=== PATIENT | female | born 1995 | race Caucasian/White ===

== ENCOUNTER 2020-12-11 18:19 | Emergency (ER) | payer OTHER, SELFPAY ==
--- NOTE | ~2020-12-11 | XR_ITS ---
EXAMINATION: XR chest 2V DATE: 12/11/2020 20:03 INDICATION: Shortness of breath TECHNIQUE: PA and lateral views of the chest are obtained. COMPARISON: 12/20/2015 FINDINGS: The lungs are free of acute opacities. There is no pleural effusion or pneumothorax. The ca rdiomediastinal silhouette is normal. The visualized bones and soft tissues are unremarkable. IMPRESSION: 1. No acute cardiopulmonary abnormality. Reviewed, dictated and finalized at location A.
[2020-12-11 18:38] VITALS: BP 131/72; PULSE 99; RESP 16; TEMP 36.6; O2SAT 100
--- NOTE | 2020-12-11 18:45 | ECG_ITS ---
Measurements Intervals [place] Rate: 92 P: 63 WV: 154 QRS: 40 QRSD: 86 T: 21 QT: 330 QTc: 409 Interpretive Statements SINUS RHYTHM MINIMAL Q WAVES- INFERIOR LEADS BORDERLINE ECG Electronically Signed On 12-11-2020 19:04:03 CDT by Hugh Figueroa D.O.
[2020-12-11 20:22] LABS: Basophils Absolute Auto 0.1 K/mm3 (0.0-0.1); Basophils Percent Auto 0.5 % (0.2-1.2); Eosinophils Absolute Auto 0.2 K/mm3 (0-0.3); Eosinophils Percent Auto 1.8 % (0-4.4); Hematocrit 39.9 % (37.0-47.0); Hemoglobin 12.7 g/dL (12.0-15.0); Immature Granulocyte Absolute 0.02 K/mm3 (0.00-0.031); Immature Granulocyte Percent A 0.2 % (0-0.5); Lymphocytes Absolute Auto 4.37 K/mm3 (0.9-3.2); Lymphocytes Percent Auto 36.2 % (18.3-44.2); Mean Corpuscular HGB Conc 31.8 g/dl (32-36); Mean Corpuscular Hemoglobin 28.5 pg (26-34); Mean Corpuscular Volume 89.7 fl (80-100); Monocytes Absolute Auto 0.7 K/mm3 (0.1-0.6); Monocytes Percent Auto 5.7 % (2.6-8.5); Neutrophils Absolute Auto 6.7 K/mm3 (1.3-6.7); Neutrophils Percent Auto 55.6 % (45.5-73.1); Platelet Count Result 337 k/mm3 (150-375); Red Blood Count 4.45 M/mm3 (4.2-5.4); Red Cell Distribution Width 12.9 % (11.5-14.5); White Blood Count 12.1 K/mm3 (4.5-10.0)
[2020-12-11 20:27] LABS: Add Urine Microscopic? YES; Amorphous Sediment Urine Moderate; Appearance Urine Cloudy (Clear); Bacteria Urine Trace /hpf; Bilirubin Urine Negative (Negative); Blood Urine Negative (Negative); Color Urine Yellow (Yellow); Glucose Urine UA Negative (Negative); Ketones Urine Negative (Negative); Leukocyte Esterase Ur Negative LEU/UL (Negative); Mucus Urine Rare /lpf; Nitrate Urine Negative (Negative); Protein Urine Negative (Negative); Squamous Epithelial Cell Urine Moderate /hpf (Few); Urobilinogen Urine Negative mg/dL (<2.0); WBC Urine 0-3 /hpf
[2020-12-11 20:35] LABS: Alanine Aminotransferase 15 U/L (4-35); Albumin Level 4.3 g/dL (3.5-5.1); Alkaline Phosphatase 77 U/L (38-126); Anion Gap 3 mmol/L (8-16); Aspartate Amino Transferase 22 U/L (14-36); Bilirubin,Total 0.1 mg/dL (0.2-1.3); Blood Urea Nitrogen 14 mg/dL (7-17); Calcium 9.1 mg/dL (8.4-10.2); Carbon Dioxide 33 mmol/L (22-30); Chloride 103 mmol/L (98-107); Estimated CRCL calculation 129 ml/min; Estimated Glomerular Filt Rate > 60; Glucose 74 mg/dL (65-105); Sodium 139 mmol/L (137-145)
[2020-12-11 22:09] VITALS: BP 129/69; PULSE 89; RESP 15; O2SAT 100
--- NOTE | 2020-12-11 22:15 | ED.BACK ---
HPI - Back Pain/Injury General Chief Complaint: Back Pain/Injury Stated Complaint: upper back pain Time Seen by Provider: 12/11/20 18:54 Source: patient Mode of arrival: ambulatory Limitations: no limitations History of Present Illness HPI Narrative: Patient is a 25-year-old female who presents complaining of right x4 days. She denies known injury. She reports increased pain with deep breathing, and difficulty deep breathing. She reports taking muscle relaxants and ibuprofen with moderate relief. She reports pain has been increasing over the past few days. She denies significant medical history. MD elicited complaint: back pain Related Data Home Medications Medication Instructions Recorded Confirmed bupropion HCl [Wellbutrin XL] 300 mg PO QAM 12/11/20 Allergies Allergy/AdvReac Type Severity Reaction Status Date / Time No Known Allergies Allergy Verified 12/11/20 18:42 Review of Systems Review of Systems: Narrative: CONSTITUTIONAL: Denies fever, chills, or sweats. EYES: Denies visual changes, redness, or discharge. ENT: Denies rhinorrhea, congestion, sore throat, or otalgia. CARDIOVASCULAR: Denies chest pain, palpitations, or edema. RESPIRATORY: Denies cough or dyspnea. GASTROINTESTINAL: Denies abdominal pain, nausea, vomiting, or diarrhea. GENITOURINARY: Denies dysuria or hematuria. SKIN: Denies rash or itching. MUSCULOSKELETAL: Upper back pain NEUROLOGIC: Denies headache, numbness, dizziness, or weakness. PSYCHIATRIC: Denies anxiety or depression. [facility] Past Medical History Medical History No significant past medical history Surgical History Surgical History No significant past surgical history Family History Family History (Updated 12/11/20 @ 22:24 by RICO Costa) Other No significant family history Social History Social History (Updated 12/11/20 @ 22:25 by RICO Costa) Smoking status: Never smoker Alcohol intake: never Substance use: never Comments At the time of signature, I have reviewed and agree with nursing past medical, surgical, social, and family history unless otherwise noted. Please see nursing chart for further information. There is no relevant family history pertinent to the presenting complaint. Exam Narrative: Exam Narrative: GENERAL: Well-appearing, well-nourished, and in no acute distress. HEAD: Normocephalic, atraumatic. EYES: EOMI. No redness or drainage. Conjunctiva are normal. ENT: Mucous membranes pink and moist. NECK: AROM. CHEST: No respiratory distress. Clear to auscultation. HEART: Regular rate and rhythm. MUSCULOSKELETAL: No bony tenderness. EXTREMITIES: Normal range of motion. No edema. SKIN: Warm, dry, no rash. NEURO: No focal deficits. Alert and oriented x3. Gait steady. PSYCH: Normal affect. No signs of depression or anxiety. Course Vital Signs Vital signs: Vital Signs Temperature 36.6 C 12/11/20 18:38 Pulse Rate 99 12/11/20 18:38 Respiratory Rate 16 12/11/20 18:38 Blood Pressure 131/72 12/11/20 18:38 Pulse Oximetry 100 12/11/20 18:38 Temperature 36.6 C 12/11/20 18:38 Pulse Rate 89 12/11/20 22:09 Respiratory Rate 15 12/11/20 22:09 Blood Pressure 129/69 12/11/20 22:09 Pulse Oximetry 100 12/11/20 22:09 Reviewed-patient is informed that they may have pre-hypertension or hypertension based on a blood pressure reading. I recommend the patient call the primary care provider listed on their discharge instructions or a physician of their choice this week to arrange follow-up for further evaluation of possible pre-hypertension or hypertension. MDM - Back Pain/Injury MDM Narrative Medical decision making narrative: Patient most likely has musculoskeletal pain to upper thoracic back. Discussed using ice, heat, Tylenol and ibuprofen as well as muscle relaxant. Patient encourage
== END 2020-12-11 22:28 | disposition home or self-care (01) ==
PROVIDERS: Emergency Provider Nurse Practitioner
DX: M54.6 Pain in thoracic spine (principal)
CPT/HCPCS: 36415; 71046; 80053; 81001; 81025; 85025; 93005; 99283

== ENCOUNTER 2022-03-19 10:32 | Outpatient (CLI) | payer OTHER, SELFPAY ==
--- NOTE | ~2022-03-19 | XR_ITS ---
EXAMINATION: XR ankle LT min 3V DATE: 03/19/2022 10:52 INDICATION: Left ankle swelling and bruising post fall TECHNIQUE: Anteroposterior, oblique, mortise, and lateral views of the left ankle were obtained. COMPARISON: None. FINDINGS: Alignment is normal. No fracture. Joint spaces are well maintained. No ankle joint effusion. The so ft tissues are unremarkable. IMPRESSION: 1. Negative left ankle radiographs. Reviewed, dictated and finalized at location B.
--- NOTE | ~2022-03-19 | XR_ITS ---
EXAMINATION: XR knee LT min 4V DATE: 03/19/2022 10:52 INDICATION: Left knee swelling and bruising post fall TECHNIQUE: Anteroposterior, 2 oblique and crosstable lateral views of the left knee were obtained COMPARISON: None. FINDINGS: Alignment is normal. No fracture. No joint effusion/layering lipohemarthrosis. Soft tissues are unre markable. IMPRESSION: 1. Negative left knee radiographs. Reviewed, dictated and finalized at location B.
== END 2022-03-19 10:33 | disposition home or self-care (01) ==
LOC: ANHIMG 10:33
PROVIDERS: Visit Provider Obstetrics & Gynecology
DX: M79.89 Other specified soft tissue disorders (principal); T14.8XXA Other injury of unspecified body region, initial encounter
CPT/HCPCS: 73564; 73610

== ENCOUNTER 2022-03-20 12:49 | Emergency (ER) | payer OTHER, SELFPAY ==
--- NOTE | ~2022-03-20 | US_ITS ---
US venous doppler [facility] DATE: 03/20/2022 14:18 INDICATION: Left leg pain and bruising TECHNIQUE: Real-time and color flow imaging and Doppler analysis COMPARISON: None FINDINGS: There is spontaneous and phasic flow and normal augmentation and color flow signal and norm al compression of the deep veins of the left lower extremity. There is no evidence of deep venous thr ombosis. No popliteal cyst demonstrated. Probable left lateral lower leg hematoma. IMPRESSION: No evidence of deep venous thrombosis of left leg Reviewed, dictated and finalized at Location A. Reviewed, dictated and finalized at location A.
[2022-03-20 13:11] VITALS: BP 155/97; PULSE 105; RESP 16; TEMP 36.3; O2SAT 100
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
[2022-03-20 14:25] LABS: Basophils Absolute Auto 0.1 K/mm3 (0.0-0.1); Basophils Percent Auto 0.5 % (0.2-1.2); Eosinophils Absolute Auto 0.1 K/mm3 (0-0.3); Eosinophils Percent Auto 0.6 % (0-4.4); Hematocrit 42.8 % (37.0-47.0); Hemoglobin 13.5 g/dL (12.0-15.0); Immature Granulocyte Absolute 0.05 K/mm3 (0.00-0.031); Immature Granulocyte Percent A 0.4 % (0-0.5); Lymphocytes Absolute Auto 2.63 K/mm3 (0.9-3.2); Mean Corpuscular HGB Conc 31.5 g/dl (32-36); Mean Corpuscular Volume 91.8 fl (80-100); Mean Platelet Volume 11.1 fl (7.4-10.4); Monocytes Absolute Auto 0.9 K/mm3 (0.1-0.6); Monocytes Percent Auto 6.8 % (2.6-8.5); Neutrophils Absolute Auto 8.9 K/mm3 (1.3-6.7); Neutrophils Percent Auto 70.7 % (45.5-73.1); Platelet Count Result 355 k/mm3 (150-375); Red Blood Count 4.66 M/mm3 (4.2-5.4); Red Cell Distribution Width 13.9 % (11.5-14.5); White Blood Count 12.6 K/mm3 (4.5-10.0)
[2022-03-20 14:42] LABS: Anion Gap 6 mmol/L (8-16); Blood Urea Nitrogen 11 mg/dL (7-17); Carbon Dioxide 29 mmol/L (22-30); Chloride 102 mmol/L (98-107); Estimated CRCL calculation 114 ml/min; Estimated Glomerular Filt Rate > 60; Glucose 101 mg/dL (65-110); Potassium 3.9 mmol/L (3.4-5.0); Sodium 137 mmol/L (137-145)
[2022-03-20 15:15] VITALS: BP 133/83; PULSE 88; RESP 18; O2SAT 100
== END 2022-03-20 15:20 | disposition home or self-care (01) ==
PROVIDERS: Emergency Provider Emergency Medicine; PCP Family Medicine
DX: S80.12XA Contusion of left lower leg, initial encounter (principal); F41.9 Anxiety disorder, unspecified; Y93.16 Activity, rowing, canoeing, kayaking, rafting and tubing; W18.39XA Other fall on same level, initial encounter
CPT/HCPCS: 36415; 80048; 85025; 93971; 99284

== ENCOUNTER 2022-12-31 09:59 | Emergency (ER) | payer OTHER, SELFPAY ==
--- NOTE | ~2022-12-31 | CT_ITS ---
EXAMINATION: CT abdomen pelvis w con INDICATION: Right flank pain TECHNIQUE: Computed tomographic images of the abdomen and pelvis were obtained after the administrati on of 100 cc of Omnipaque 350 intravenous contrast. The dose-length product (DLP) was 1234.20 mGy-cm. Automated exposure control and iterative reconstruction technique were employed. COMPARISON: 08/10/2018 FINDINGS: Minimal dependent atelectasis is present in the lung bases. The heart size is normal. Cysts of the liver measure up to 10 mm in the right hepatic lobe. The spleen, pancreas, gallbladder, and a drenal glands are normal. The kidneys are unremarkable. The appendix is normal. No pathologically enl arged abdominal or pelvic lymph nodes are identified. No free intraperitoneal gas or evidence of demarcus l obstruction. There is a small fat-containing umbilical hernia. IMPRESSION: 1. No CT correlate for the patient's symptoms. Reviewed, dictated and finalized at location B.
[2022-12-31 10:06] VITALS: BP 142/90; PULSE 88; RESP 16; TEMP 37; O2SAT 99
[2022-12-31] MEDS: SODIUM CHLORIDE 0.9% IV 1,000 ML 999 ML IV CONT (11:05)
[2022-12-31 11:07] LABS: Basophils Absolute Auto 0.1 K/mm3 (0.0-0.1); Basophils Percent Auto 0.5 % (0.2-1.2); Eosinophils Percent Auto 0.1 % (0-4.4); Hematocrit 44.3 % (37.0-47.0); Hemoglobin 14.3 g/dL (12.0-15.0); Immature Granulocyte Absolute 0.08 K/mm3 (0.00-0.031); Immature Granulocyte Percent A 0.5 % (0-0.5); Lymphocytes Absolute Auto 1.72 K/mm3 (0.9-3.2); Lymphocytes Percent Auto 11.3 % (18.3-44.2); Mean Corpuscular HGB Conc 32.3 g/dl (32-36); Mean Corpuscular Hemoglobin 29.7 pg (26-34); Mean Corpuscular Volume 91.9 fl (80-100); Monocytes Percent Auto 6.4 % (2.6-8.5); Neutrophils Absolute Auto 12.4 K/mm3 (1.3-6.7); Neutrophils Percent Auto 81.2 % (45.5-73.1); Platelet Count Result 326 k/mm3 (150-375); Red Blood Count 4.82 M/mm3 (4.2-5.4); Red Cell Distribution Width 13.1 % (11.5-14.5); White Blood Count 15.3 K/mm3 (4.5-10.0)
[2022-12-31 11:18] LABS: Alanine Aminotransferase 18 U/L (6-35); Albumin Level 4.6 g/dL (3.5-5.1); Alkaline Phosphatase 83 U/L (38-126); Anion Gap 8 mmol/L (8-16); Aspartate Amino Transferase 35 U/L (14-36); Bilirubin,Total 0.9 mg/dL (0.2-1.3); Blood Urea Nitrogen 15 mg/dL (7-17); Calcium 9.2 mg/dL (8.4-10.2); Carbon Dioxide 26 mmol/L (22-30); Chloride 102 mmol/L (98-107); Estimated CRCL calculation 70 ml/min; Estimated Glomerular Filt Rate 53; Glucose 83 mg/dL (65-110); Lipase 80 U/L (23-300); Potassium 4.5 mmol/L (3.4-5.0); Sodium 136 mmol/L (137-145)
[2022-12-31 11:33] VITALS: O2SAT 100
[2022-12-31 11:34] VITALS: BP 134/82; PULSE 76; RESP 18; O2SAT 100
--- NOTE | 2022-12-31 11:44 | ED.ABDPAIN ---
HPI - Abdominal Pain General Chief Complaint: Abdominal Pain Stated Complaint: flank pain Time Seen by Provider: 12/31/22 10:42 History of Present Illness HPI narrative: 27-year-old female history of anxiety presents to the emergency room for evaluation of right lower back pain and subjective fevers. Patient states that she was diagnosed with a UTI last week and completed a course of Macrobid. States that she is concerned she may be developing a kidney infection. Denies nausea or vomiting. Related Data Home Medications Medication Instructions Recorded Confirmed bupropion HCl 300 mg 24 hr tablet, 300 mg PO QAM 12/11/20 01/14/22 extended release (Wellbutrin XL) Allergies Allergy/AdvReac Type Severity Reaction Status Date / Time No Known Allergies Allergy Verified 12/31/22 10:42 Review of Systems Review of Systems: CONSTITUTIONAL: Denies fever, chills, or sweats. EYES: Denies visual changes, redness, or discharge. ENT: Denies rhinorrhea, congestion, sore throat, or otalgia. CARDIOVASCULAR: Denies chest pain, palpitations, or edema. RESPIRATORY: Denies cough or dyspnea. GASTROINTESTINAL: Reports flank pain per HPI GENITOURINARY: Denies dysuria or hematuria. SKIN: Denies rash or itching. MUSCULOSKELETAL: Denies back pain, joint pain, or myalgia. NEUROLOGIC: Denies headache, numbness, dizziness, or weakness. PSYCHIATRIC: Denies anxiety or depression. [facility] Past Medical History Medical History Anxiety Chronic diarrhea Microscopic colitis No significant past medical history Surgical History Surgical History No significant past surgical history Family History Family History Father Hypertension Heart disease Mother Hypertension Diabetes mellitus Cancer Depression Other No significant family history Social History Social History Smoking status: Never smoker Alcohol intake: current Alcohol use details: social Substance use: never Living arrangements: with family Exam Narrative: GENERAL: Well-appearing, well-nourished, no physical limitations, and in no acute distress. HEAD: Normocephalic, atraumatic. EYES: Conjunctivae normal, PERRLA and EOMI. CHEST: Clear to auscultation. No respiratory distress. No wheezes rales or rhonchi. HEART: Regular rate and rhythm. No murmur heard. Normal peripheral pulses. ABDOMEN: Soft, nontender, nondistended, normal active bowel sounds. BACK: Right CVA tenderness EXTREMITIES: Normal range of motion. No edema. No clubbing or cyanosis SKIN: Warm, dry, no rash. No noted wounds NEURO: No focal deficits. Alert and oriented x3. MAEW. CN's II-XI intact bilaterally, normal gait PSYCH: Cooperative. Normal mood and affect. Course Vital Signs Vital signs: Vital Signs Temperature 37.0 C 12/31/22 10:06 Pulse Rate 88 12/31/22 10:06 Respiratory Rate 16 12/31/22 10:06 Blood Pressure 142/90 H 12/31/22 10:06 Pulse Oximetry 99 12/31/22 10:06 Temperature 37.0 C 12/31/22 10:06 Pulse Rate 76 12/31/22 11:34 Respiratory Rate 18 12/31/22 11:34 Blood Pressure 134/82 12/31/22 11:34 Pulse Oximetry 100 12/31/22 11:34 MDM - Abdominal Pain Lab Data 12/31/22 10:50 12/31/22 10:50 Labs: Lab Results 12/31/22 12/31/22 Range/Units 10:50 11:25 WBC 15.3 H (4.5-10.0) K/mm3 RBC 4.82 (4.2-5.4) M/mm3 Hgb 14.3 (12.0-15.0) g/dL Hct 44.3 (37.0-47.0) % MCV 91.9 (80-100) fl MCH 29.7 (26-34) pg MCHC 32.3 (32-36) g/dl RDW 13.1 (11.5-14.5) % Plt Count 326 (150-375) k/mm3 MPV 11.0 H (7.4-10.4) fl Immature Gran % (Auto) 0.5 (0-0.5) % Neut % (Auto) 81.2 H (45.5-73.1) % Lymph % (Auto) 11.3 L (18.3-44.2) % Alexander % (Auto) 6
[2022-12-31 11:46] LABS: Appearance Urine Cloudy (Clear); Bacteria Urine Rare /hpf; Bilirubin Urine Negative (Negative); Blood Urine Negative (Negative); Color Urine Yellow (Yellow); Glucose Urine UA Negative (Negative); Ketones Urine Negative (Negative); Leukocyte Esterase Ur Trace LEU/UL (Negative); Nitrate Urine Negative (Negative); Non Pathogenic Casts 0-2; Protein Urine Negative (Negative); RBC Urine 0-2 /hpf (0-2); Specific Grav Ur 1.006 (1.001-1.035); Squamous Epithelial Cell Urine Few /hpf (Few); Urobilinogen Urine 0.2 mg/dL (<2.0)
[2022-12-31 11:47] LABS: Lactic Acid Reflex 0.8 mmol/L (0.7-2.0)
[2022-12-31 11:56] LABS: Add Urine Microscopic? YES
== END 2022-12-31 12:44 | disposition home or self-care (01) ==
PROVIDERS: Emergency Medicine; Emergency Provider Nurse Practitioner Family; PCP Family Medicine
DX: N39.0 Urinary tract infection, site not specified (principal); F41.9 Anxiety disorder, unspecified
CPT/HCPCS: 36415; 74177; 80053; 81001; 81025; 83605; 83690; 85025; 87086; 96361; 96365; 99284; J0696; J7030; Q9967

== ENCOUNTER 2024-10-18 18:33 | Emergency (ER) | payer OTHER, SELFPAY ==
--- NOTE | 2024-10-18 18:47 | ED.URI ---
HPI - URI/Sore Throat General Chief Complaint: Upper Respiratory Infection Stated Complaint: Upper Respiratory Symptoms Source: patient and RN notes reviewed Mode of arrival: ambulatory Limitations: no limitations History of Present Illness HPI Narrative: Patient is a 29-year-old female who presents to the [facility] with multiple complaints. Patient reports sore throat, cough, and body aches that have been present for the last 3 days. She reports increased fatigue. She states that she barely has any energy. She also endorses chills. She is unsure of known fever. Denies chest pain or shortness of breath. Respirations are unlabored. Related Data Home Medications ?Medication ?Instructions ?Recorded ?Confirmed ?Last Taken ?Type bupropion HCl 300 mg 24 hr tablet, 300 mg PO QAM 12/11/20 01/14/22 03/19/22 History extended release (Wellbutrin XL) Allergies Allergy/AdvReac Type Severity Reaction Status Date / Time No Known Allergies Allergy Verified 12/31/22 10:42 Review of Systems Review of Systems: CONSTITUTIONAL: Unsure of fever, reports chills. Reports fatigue. EYES: Denies visual changes, redness, or discharge. ENT: Denies otalgia but reports sore throat CARDIOVASCULAR: Denies chest pain, palpitations, or edema. RESPIRATORY: Reports cough but denies dyspnea. GASTROINTESTINAL: Denies abdominal pain, nausea, vomiting, or diarrhea. GENITOURINARY: Denies dysuria or hematuria. SKIN: Denies rash or itching. MUSCULOSKELETAL: Denies back pain, joint pain, but reports myalgia. NEUROLOGIC: Denies headache, numbness, or weakness. Pertinent positives per HPI. [facility] Past Medical History Medical History Chronic diarrhea Anxiety Microscopic colitis No significant past medical history Surgical History Surgical History No significant past surgical history Family History Family History Father Hypertension Heart disease Mother Hypertension Diabetes mellitus Cancer Depression Other No significant family history Social History Social History Smoking status: Never smoker Alcohol intake: current Alcohol use details: social Substance use: never Living arrangements: with family Comments At the time of my signature, I reviewed and agree with the nursing past medical, surgical, social, and family history. There is no relevant family history pertinent to the patient complaint. Exam Narrative: GENERAL: This is a well-nourished, well-developed patient, in no apparent distress. HEAD: normocephalic, atraumatic. EYES: Sclera clear/white. Vision is grossly intact. EARS: External ears normal. Hearing grossly intact. NOSE: External nose normal with no obvious nasal discharge, nares without redness, no rhinorrhea. THROAT: Mucous membranes moist, Oropharyngeal erythema. NECK: Neck supple, non-tender without lymphadenopathy, masses or thyromegaly. CARDIOVASCULAR: Regular rate and rhythm without murmurs, gallops, or rubs. RESPIRATORY: Clear to auscultation. Breath sounds equal bilaterally. No wheezes, rales, or rhonchi. GASTROINTESTINAL: Abdomen soft, non-tender, nondistended. Bowel sounds are active. No hepato-splenomegaly, or palpable masses. No guarding. SKIN: warm, intact with no suspicious lesions or rash, good texture and turgor. NEURO: awake, alert, and oriented to person, place and time. There were no obvious focal neurologic abnormalities. EXTREMITIES: No clubbing, cyanosis, or edema. No joint tenderness, effusion, or edema noted. BACK: Nontender without deformity or crepitance. No flank tenderness. Course Course Level of Care: Express Care Visit Vital Signs Vital signs: Vital Signs Temperature 97.9 F 10/18/24 18:56 Pulse Rate 93 10/18/24 18:56 Respiratory Rate 16 10/18/24 18:56 Blood Pressure 125/78 10/18/24 18:56 Pulse Oximetry 100 10/18/24 18:56 Temperature 97.9 F 10/18/24 18:56 Pulse Rate 93 10/18/24 18:56 Respiratory Rate 16 10/18/24 18:56 Blood Pressure 125/78 10/18/24 18:56 Pulse Oximetry 100 10/18/24 18:56 Reviewed MDM - URI/Sore Throat MDM Narrative Medical decision making narrative: Viral illness may last between 7-21 days; antibiotics do not cure viral illness and are NOT recommended at this time. Also, recommend symptomatic treatment includes: rest, fluids, and increase humidity of the air at home. Recommend Acetaminophen as directed on the bottle to reduce fever, pain, headache. Please schedule a follow-up visit with your personal physician for further evaluation and treatment within 3-5days. If your symptoms persist, change or worsen significantly before you can contact your personal physician then please, without delay, go to the emergency department for further evaluation. Differential Diagnosis Differential diagnosis: Likely upper respiratory infection, viral infection, influenza, pharyngitis and other (covid, strep) Lab Data Attestation: I reviewed the patient's lab results. Labs: Lab Results 10/18/24 10/18/24 Range/Units 19:06 19:11 POC Influenza A Ag Negative (Negative) POC Influenza B Ag Negative (Negative) POC SARS CoV-2 Ag Negative (Negative) POC Grp A Strep Screen Negative (Negative) Critical Care Time Critical Care Time Critical Care Time: No Discharge Plan Discharge Clinical Impression: Viral illness Patient Disposition: Home, Self-Care Condition: Stable Instructions: Viral Syndrome (ED) Additional Instructions: Viral illness may last between 7-21 days; antibiotics do not cure viral illness and are NOT recommended at this time. Also, recommend symptomatic treatment includes: rest, fluids, and increase humidity of the air at home. Recommend Acetaminophen as directed on the bottle to reduce fever, pain, headache. Please schedule a follow-up visit with your personal physician for further evaluation and treatment within 3-5days. If your symptoms persist, change or worsen significantly before you can contact your personal physician then please, without delay, go to the emergency department for further evaluation. Patient Language: Malay Prescriptions: No Action acetaminophen 500 mg capsule 500 mg PO Q6H PRN (Reason: fever or pain) Qty: 30 0RF cephalexin 500 mg capsule 500 mg PO Q8H 10 Days Qty: 30 0RF ibuprofen 400 mg tablet 400 mg PO TID PRN (Reason: fever or pain) 10 Days Qty: 30 0RF cephalexin 500 mg tablet 500 mg PO Q8H 10 Days Qty: 30 0RF bupropion HCl [Wellbutrin XL] 300 mg Tablet Extended Release 24 Hr 300 mg PO QAM Follow-up/Referrals: PHYSICIAN,FAMILY NURSE [Primary Care Provider] - Stand Alone Forms: Work/School Release IP Time of Disposition: 19:16
[2024-10-18 18:56] VITALS: BP 125/78; PULSE 93; RESP 16; TEMP 36.6; O2SAT 100
[2024-10-18 19:08] LABS: EDSTREPNEGPOS1 Negative (Negative)
[2024-10-18 19:13] LABS: EDCOVIDSCREEN Negative (Negative); EDINFLUASCREEN Negative (Negative); EDINFLUBSCREEN Negative (Negative)
== END 2024-10-18 19:21 | disposition home or self-care (01) ==
PROVIDERS: Emergency Provider Nurse Practitioner
DX: B34.9 Viral infection, unspecified (principal); Z20.822 Contact with and (suspected) exposure to COVID-19; F41.9 Anxiety disorder, unspecified
CPT/HCPCS: 87081; 87426; 87804; 87880; 99213; G0463